=== PATIENT | female | born 1995 | race Asian ===

== ENCOUNTER 2022-06-03 11:31 | Inpatient (IN) ==
[2022-06-03] MEDS ORDERED: LIDOCAINE 1% LOCAL 20 ML VIAL INFIL PRN (11:58)
[2022-06-03] MEDS ORDERED: OXYTOCIN 30 UNITS/500 ML BAG IV PRN ×3 (11:58→20:56)
[2022-06-03] MEDS ORDERED: LACTATED RINGER'S 1,000 ML IV PRN (11:58)
--- NOTE | 2022-06-03 12:10 | History & Physical Report ---
Date of Service June 03, 2022 Assessment & Plan (1) Supervision of normal first : Plan: Admit to L&D. Efm/toco. Labs. IV. Is hoping to labor without epidural. Discussed that ok to ambulate for up to 6h after water breaks to see if ctx increase naturally, also ok to start pitocin for labor augmentation to get a better labor contraction pattern. She'd like to ambulate first. History of Present Illness Chief Complaint: labor Primary Care Provider: [facility] 26yo @ 38 02/14, presents with gush of clear fluid at 9:15 this morning. + movement. No vaginal bleeding. Some contractions. Gestational diabetes, diet controlled. Allergies Allergy/AdvReac Type Severity Reaction Status Date / Time No Known Allergies Allergy Verified 06/01/22 14:37 Home Medications Medication Instructions Recorded Confirmed Type prenat.vits,karen,pvk-qntp-jjrhd 1 tab PO DAILY 10/15/21 06/01/22 History acetone (urine) test (Ketone Urine #50 ea 03/19/22 06/01/22 Rx Test strips) blood sugar diagnostic (OneTouch #150 ea 03/19/22 06/01/22 Rx Verio test strips) blood-glucose meter (OneTouch #1 ea 03/19/22 06/01/22 Rx Verio Flex Meter) lancets 33 gauge (OneTouch Delica #150 ea 03/19/22 06/01/22 Rx Lancets) Patient History Medical History Varicella vaccination Surgical History S/P wisdom tooth extraction Family History (Updated 10/15/21 @ 14:09 by Rachel Stauffer) Sister Epilepsy Mother Hypertension Grandmother (Paternal) Diabetes Grandmother (Maternal) No problems noted. Grandfather (Maternal) Heart disease Denies family history of Ovarian cancer Breast cancer Colorectal cancer Social History (Updated 10/15/21 @ 14:11 by Rachel Stauffer) Smoking Status: Never smoker Hx Alcohol Use: No Hx Substance Use: No Preferred Language: Urdu Communication Ability: Effective Shuttle Filler Required: No Beliefs That Will Affect Care: None marital status: marital status details: Baljinder Mishra ([place])(29) [phone] Current Living Situation: Spouse Current Living Situation Comment: Baljinder Rodríguez" current occupational status: employed current occupation: senior [employer] Feels Safe at Home: Yes Assistive Devices: None Review of Systems All systems reviewed & are unremarkable except as noted in HPI & below Physical Exam Physical Exam: FHT Cat 1 [place] irreg SVE 4/80/-1, soft/mid, 7-8 efw. Grossly ruptured, +nitrizine. Constitutional: WD/WN, vitals as above Respiratory: normal respiratory effort, lungs clear to auscultation no respiratory distress Cardiovascular: Rate/Rhythm: regular rate and regular rhythm Gastrointestinal (Abdomen): Inspection/Auscultation: abdomen normal to inspection Percussion/Palpation: abdomen soft; abdomen nontender Gravid. No s/s chorio or abruption. Skin: no rashes, warm and dry Psychiatric: A+Ox3, euthymic affect Coding Level of Care Code None Diagnoses Supervision of normal first Z34.00
[2022-06-03 12:46] LABS: Hematocrit (blood only) 36.8 % (37.0-47.0); Hemoglobin 12.2 g/dl (12.0-16.0); Mean Corpuscular Hgb Conc 33.2 g/dL (32.0-36.0); Mean Corpuscular Volume 81.4 fL (80.0-100.0); Mean Platelet Volume 10.7 fL (9.4-12.4); Platelet Count 239 K/uL (130-400); RDW Coefficient of Variation 14.1 % (11.5-14.5); RDW Standard Deviation 40.9 fL (36.4-46.3); Red Blood Count 4.52 M/uL (4.20-5.40); White Blood Count 8.77 K/ul (4.8-10.8)
--- NOTE | 2022-06-03 19:02 | Labor Progress Brief Note ---
Date of Service June 03, 2022 Subjective Pt uncomfortable with contractions. Pitocin was started approx 3pm, now has regular contraction pattern. FHT Cat 1 [place] Q2 SVE 6/100/+1 Continue labor. Does not desire epidural. Assessment & Plan Admission and Anticipated Discharge Date Admission Date: June 03, 2022 Results & Data Vital Signs (Past 12 Hours) Vital Signs Temp Pulse Resp BP 06/03/22 12:18 37 C 18 06/03/22 18:51 99 H 134/92 06/03/22 18:37 100 H 181/103 H 06/03/22 18:23 98 H 163/101 H 06/03/22 18:10 100 H 179/97 H 06/03/22 18:08 91 H 185/92 H 06/03/22 17:51 97 H 139/84 06/03/22 17:37 93 H 168/90 H 06/03/22 17:22 90 132/80 06/03/22 17:06 85 136/82 06/03/22 16:55 89 132/76 06/03/22 15:42 88 135/81 06/03/22 14:57 90 122/81 06/03/22 12:23 100 H 126/77 Coding Level of Care Code None Diagnoses
[2022-06-03] MEDS ORDERED: bisacodyL 10 MG SUPP PR PRN (20:56)
[2022-06-03] MEDS ORDERED: DIPHTHERIA/TETANUS/PERTUSSIS 0.5mL SYR/VIAL (Age 7+yrs) IM ONE (20:56)
[2022-06-03] MEDS ORDERED: oxyCODONE/ACETAMINOPHEN 5mg/325mg TAB PO PRN (20:56)
[2022-06-03] MEDS ORDERED: ACETAMINOPHEN 325 MG TAB PO PRN (20:56)
[2022-06-03] MEDS ORDERED: BENZOCAINE 20% AER SPR 82.5 GM CAN EXT PRN (20:56)
[2022-06-03] MEDS ORDERED: HYDROCORTISONE ACETATE 25 MG SUPP PR PRN (20:56)
--- NOTE | 2022-06-03 22:45 | Delivery Summary ---
Vaginal Delivery Summary Date of Service June 03, 2022 Vaginal Delivery Summary and 2nd Degree LAC Vaginal Delivery Summary: Pre-delivery diagnoses: 26yo @ 40 1/7, GDMA1, spontaneous labor Post-delivery diagnoses: same Procedure: spontaneous vaginal delivery, repair of 2nd degree perineal laceration and right periurethral laceration Surgeon: Teresa Perea DO Complications: none Findings: Viable female . Apgars: 8/9 . Weight pending, please see nursery records Estimated blood loss: 400cc Description of delivery: The patient progressed to complete withoutl anesthesia. She then began to push. She spontaneously vaginally delivered a viable from the cephalic presentation. The head delivered in ARTURO position. The anterior shoulder delivered, followed by the posterior shoulder, followed by the body. The baby was placed on mother's abdomen and a spontaneous cry was heard. Delayed cord clamping was employed, and the cord was doubly clamped and cut. Cord blood was obtained. The placenta was delivered spontaneously intact with a 3-vessel cord. The uterus and vagina were swept of clots and debris. IV pitocin was given. The uterus became firm. The cervix, vagina, and perineum were inspected. A 2nd degree perineal laceration was noted, as well as a right periurethral laceration. 1% lidocaine was infused at the laceration sites. The lacerations were reapproximated with 3-0 Vicryl in standard fashion. Excellent hemostasis was observed. There was a small left vaginal hematoma, which was small (approx 2cm in diameter), and did not appear to be growing. A crain catheter was placed in the bladder. 2 lap sponges were used to pack the vagina to provide pressure against this vaginal hematoma to prevent progression. Plan is to remove in AM. The mother and baby are recovering in stable and good condition in the room. Sponge, needle and instrument counts were correct x 2. Teresa Perea DO [facility] Vaginal Delivery Charge Vaginal Delivery Codes: 37994 global code for the antepartum, delivery, and post- Delivery Type Details: and 2nd Degree LAC
[2022-06-03 23:28] LABS: Hematocrit (blood only) 31.8 % (37.0-47.0); Hemoglobin 10.7 g/dl (12.0-16.0)
[2022-06-04] MEDS: IBUPROFEN 600 MG TAB PO PRN ×3 (00:23→13:27)
--- NOTE | 2022-06-04 06:35 | Obstetrical Progress Note ---
Date of Service June 04, 2022 Assessment & Plan (1) Spontaneous vaginal delivery: - Feels well today. Eating well, - Will remove crain today and have the patient ambulate. - Patient had a vaginal hematoma after delivery, pad was placed and was removed this morning. Will monitor bleeding througout the day. - Pain well controlled with ibuprofen 600mg Q4H PRN - Routine care -- OOB, ambulation, diet progression as tolerated - After discharge will have 6 week follow-up with Dr. Perea (2) Gestational diabetes: - Glucose well controlled since admission. - f/u with pcp after discharge. (3) Vaginal hematoma: - vaginal hematoma after delivery covered with pad - pad removed this morning, Hgb stable at this time. - Will monitor throughout the day. Day #:: 1 Subjective Ambulation: limited ambulation (has not tried to walk yet this morning ) Voiding: crain catheter in place Passing Gas:: Yes Diet Tolerance:: regular diet Lochia:: Small Feeding Type:: breast feeding Current Pain Level(1-10): 2 Review of Systems Denies fever, chills, sweats Denies shortness of breath, difficulty breathing, chest pain, palpitations, chest pressure. Denies breast pain. Denies dysuria. Denies headache or changes in vision. Physical Exam General: Alert, oriented. No acute distress. Cardiac: Regular rate and rhythm, no murmurs/rubs/gallops. Respiratory: Clear to auscultation bilaterally a/p, no wheezes/rales/rhonchi. No increased work of breathing. Symmetrical chest rise. No respiratory distress. Abdomen: Soft, nontender, nondistended. Bowel sounds present. Uterus: Uterine fundus firm, palpable 1 cm below umbilicus. Lower Extremities: No lower extremity edema or swelling. No deep calf pain. Clarisa's negative bilaterally. Results & Data Vital Signs (Past 12 Hours) Vital Signs Temp Pulse Pulse Resp BP Pulse Ox O2 Del Method 06/04/22 00:10 37.1 C 114 H 18 96 Room Air 06/03/22 22:27 116 H 137/76 06/03/22 22:21 112 H 158/74 H 06/03/22 22:06 109 H 149/83 H 06/03/22 21:51 117 H 127/65 06/03/22 21:46 114 H 136/70 06/03/22 21:21 121 H 135/69 06/03/22 21:06 112 H 149/77 H 06/03/22 20:52 104 H 154/82 H 06/03/22 20:36 114 H 150/67 H 06/03/22 20:21 110 H 197/108 H 06/03/22 20:08 114 H 156/118 H 06/03/22 19:51 109 H 142/87 H 06/03/22 19:36 99 H 141/105 H 06/03/22 19:23 108 H 139/96 06/03/22 19:08 100 H 153/91 H 06/03/22 18:51 99 H 134/92 06/03/22 18:37 100 H 181/103 H Resident Activity Tracking Resident Involvement: Resident Care Provided Care Provided: OB Delivery
[2022-06-04 06:38] LABS: Hematocrit (blood only) 28.4 % (37.0-47.0); Hemoglobin 9.8 g/dl (12.0-16.0)
[2022-06-04] MEDS: DOCUSATE SODIUM 100 MG CAP PO SCH ×3 (08:31→20:50)
[2022-06-04] MEDS: PRENATAL VITAMIN 1 TAB PO SCH (08:31)
[2022-06-04] MEDS ORDERED: bisacodyL 5 MG TABEC PO SCH (20:00)
[2022-06-05] MEDS: IBUPROFEN 600 MG TAB PO PRN ×2 (01:15→08:26)
[2022-06-05 06:45] LABS: Hematocrit (blood only) 25.1 % (37.0-47.0); Hemoglobin 8.5 g/dl (12.0-16.0)
--- NOTE | 2022-06-05 06:45 | Obstetrical Progress Note ---
Date of Service <Cuco Faulkner DO - Last Filed: 06/05/22 06:52> June 05, 2022 Assessment & Plan <Cuco Faulkner DO - Last Filed: 06/05/22 06:52> (1) Spontaneous vaginal delivery: - Feels well today. Eating well, voiding well, ambulating well. - Pain well controlled with ibuprofen 600mg Q4H PRN - Routine care -- OOB, ambulation, diet progression as tolerated - After discharge will have 6 week follow-up with Dr. Perea. - Will d/c today. (2) Gestational diabetes: - Glucose well controlled since admission. - f/u with pcp after discharge. (3) Vaginal hematoma: - vaginal hematoma after delivery covered with pad - pad removed on 06/04, Hgb stable at 8.5 this morning. - Will send home with iron supplement once a day and Colace. Day #:: 2 <Andrew Salcido MD, FACOG - Last Filed: 06/05/22 07:07> (1) Spontaneous vaginal delivery: (2) Gestational diabetes: (3) Vaginal hematoma: Subjective <Cuco Faulkner DO - Last Filed: 06/05/22 06:52> Ambulation: ambulating normally Voiding: no voiding problems Passing Gas:: Yes Diet Tolerance:: regular diet Lochia:: Small Feeding Type:: breast feeding Current Pain Level(1-10): 3 Review of Systems Denies fever, chills, sweats Denies shortness of breath, difficulty breathing, chest pain, palpitations, chest pressure. Denies breast pain. Denies dysuria. Denies headache or changes in vision. Physical Exam <Cuco Faulkner DO - Last Filed: 06/05/22 06:52> General: Alert, oriented. No acute distress. Cardiac: Regular rate and rhythm, no murmurs/rubs/gallops. Respiratory: Clear to auscultation bilaterally a/p, no wheezes/rales/rhonchi. No increased work of breathing. Symmetrical chest rise. No respiratory distress. Abdomen: Soft, nontender, nondistended. Bowel sounds present. Uterus: Uterine fundus firm, palpable 2 cm below umbilicus. Lower Extremities: No lower extremity edema or swelling. No deep calf pain. Clarisa's negative bilaterally. Results & Data <Cuco Faulkner DO - Last Filed: 06/05/22 06:52> Vital Signs (Past 12 Hours) Vital Signs Temp Pulse Resp BP Pulse Ox O2 Del Method 06/04/22 23:12 36.7 C 101 H 18 115/77 96 Room Air 06/04/22 19:13 36.9 C 98 H 18 114/77 97 Room Air <Andrew Salcido MD, FACOG - Last Filed: 06/05/22 07:07> Co-Signing Physician Notes Resident Physician Supervision Note: I was present with Dr. Faulkner during the history and exam. I discussed the case with the resident and agree with the findings and plan as documented in the note. Any exceptions or clarifications are listed here: [None] Documented By: Andrew Salcido MD, FACOG Resident Activity Tracking <uCco Faulkner DO - Last Filed: 06/05/22 06:52> Resident Involvement: Resident Care Provided Care Provided: OB Delivery
[2022-06-05] MEDS: DOCUSATE SODIUM 100 MG CAP PO SCH (08:26)
[2022-06-05] MEDS: PRENATAL VITAMIN 1 TAB PO SCH (08:26)
== END 2022-06-05 10:35 | disposition home or self-care (01) | DRG 807 ==
LOC: OPB 11:31 → 4S1 11:33 → 4E2 23:11